=== PATIENT | male | born 1960 | race Caucasian/White ===

== ENCOUNTER → 2016-12-17 | Outpatient (CLI) | payer OTHER ==
[2015-10-15 11:02] VITALS: BP 106/63
[~2016-12-17] MED LIST: ASPI-482 PO; LIPITOR80 MG PO; LISI2.5T PO; OMEG1CAP27 PO; OMEP10SU PO; TICA90TA PO
--- NOTE | 2016-12-17 12:42 | RAD ---
APPROVED REPORT Test Type: Exercise Stress Nurse/Tech: oumou ontiveros Test Indications: CAD Cardiac History: CAD,HIGH CHOLESTEROL, CARDIAC STENTS, SEE EHR Medications: SEE EHR Medical History: NONE STATED Resting ECG: SINUS BRADYCARDIA Resting Heart Rate: 48 bpm Resting Blood Pressure: 118/83mmHg Pretest Chest Pain: No chest pain Nurse/Tech Notes LUNG SOUND CLEAR, S1S2 WNL. Consent: The procedure was explained to the patient in lay terms. Informed consent was witnessed. Addison eout was entered into [employer]. History and Stress Test performed by RT Rancho (R) (N) Stress Symptoms NONE STATED, PT WAS ABLE TO BREIFLY CONVERSE, MILD LEG DISCOMFORT, PT AT A FAST WALK ALMOST A RUN. POST EXERCISE Reason for Termination: Reached target heart rate Target HR: Yes Max HR: 156 bpm 112% of Maximum Predicted HR: 139 bpm Exercise duration: 10:44 min:sec, 4 Stage Exercise capacity: 13.4METs Max Blood Pressure: 138/78mmHg Blood Pressure response to exercise: Normal blood pressure response during stress. Heart Rate response to exercise: WNL Chest Pain: No. Arrhythmia: No. ST Change: No. INTERPRETATION Stress EKG Conclusion: Baseline EKG showed sinus rhythm. No ischemic changes at peak stress. No arr hythmias. Imaging Protocol IMAGE PROTOCOL: Rest Tc-99m/stress Tc-99m 1 day Rest: Stress: Viability: Radiopharm.Tc99m [id number] Sestamibi Dose9.5mCi 34.1mCi Duration 15min. 10min. Img Date 12/17/2016 12/17/2016 Inj-Img [id number]. 60min. Rest Admin Site:IV - Left AntecubitalAdministrator:RT Rancho (R)(N) Stress Admin Site: IV - Left AntecubitalAdministrator: RT Rancho (R)(N) STRESS DATA End Diast. Vol.114.0mlAv. Heart Rate62.0bpm End Syst. Vol.38.0mlCO Index BSA0.0L/min Myocardial Fqef928.0gEject. Ferdxguj05.0% Stress Rates Pk. Fill Rate2.55EDV/secLVtime Pk. Fill 184.10msec Pk. Empty Rate3.60ESV/secLVtime Pk. Rhpcr676.76msec 1/3 Pk. Fill1.23EDV/sec Stress Scores Regional WT0.00Summed WT0.00 Regional WM0.00Summed WM0.00 LV Perfusion Scintigraphic images showed small to moderate predominantly fixed defect involving the inferior wall consistent with previous myocardial infarction with very small amount of reversibility consistent wit h mesfin-infarct ischemia. Wall Motion Basal inferior wall hypokinesis with ejection fraction calculated at 67%. LV Perf. Quant 17 Seg. SSS5.00 17 Seg. SRS1.00 17 Seg. SDS4.00 Stress Defect Extent (% LAD)0.00Rest Defect Extent (% LAD)0.00Rev. Defect Extent (% LAD)0.00 Stress Defect Extent (% LCX) 23.80Rest Defect Extent (% LCX)8.80Rev. Defect Extent (% LCX)22.50 Stress Defect Extent (% RCA)0.00Rest Defect Extent (% RCA)4.40Rev. Defect Extent (% RCA)0.00 Stress Defect Extent (% ROX)4.60Rest Defect Extent (% ROX)2.40Rev. Defect Extent (% ROX)4.30 Conclusion 1. Treadmill exercise cardioisotope stress test showed dlssx-jl-tejcefxs inferior wall infarct with v mirna small amount of mesfin-infarct ischemia. 2. Basal inferior wall hypokinesis with ejection fraction calculated at 67%. 3. Patient had good activity tolerance. Low risk for cardiac events.
== END | disposition home or self-care (01) ==
LOC: NM 08:35
PROVIDERS: ATTEND Internal Medicine Cardiovascular Disease
DX: I25.10 Atherosclerotic heart disease of native coronary artery without angina pectoris (principal); I21.4 Non-ST elevation (NSTEMI) myocardial infarction
CPT/HCPCS: 78452; 93017; 96374; 96376; A9500

== ENCOUNTER → 2018-12-15 | Outpatient (CLI) | payer OTHER ==
[2015-10-15 11:02] VITALS: BP 106/63
[~2018-12-15] MED LIST changes: -OMEP10SU PO; +OMEP10SU2 PO
[2018-12-15 10:00] LABS: ALBUMIN 3.6 g/dL (3.4-5.0); CALCIUM 9.5 mg/dL (8.5-10.1); CREATININE 1.3 mg/dL (0.7-1.3); DIRECT BILIRUBIN 0.1 mg/dL (0.0-0.2); GFR 56.7; POTASSIUM 4.4 mmol/L (3.5-5.1); TOTAL BILIRUBIN 0.6 mg/dL (0.2-1.0); TOTAL PROTEIN 7.1 g/dL (6.4-8.2)
[2018-12-15 10:05] LABS: CHOLESTEROL/HDL RATIO 7.2
--- NOTE | 2018-12-15 12:36 | RAD ---
MR#: [id number] Date of Study: 12/15/2018 Ordering Physician: JOSETTE JACKSON, Referring Physician: EMELIA MERCHANT Tech: CAT Benson, ARRT (R) (N) APPROVED REPORT Test Type: Exercise Stress Nurse/Tech: Yari LORA Test Indications: CP, Stemi in 2016 Cardiac History: [place] in 2016 w/ 2 stents, family hx, Father passed at age 51 from [place] Medications: Lipitor, Omeprazole, ASA, and Fish oil Medical History: See EMR Resting ECG: SB Resting Heart Rate: 49 bpm Resting Blood Pressure: 120/79mmHg Pretest Chest Pain: No chest pain Nurse/Tech Notes Lungs CTA, Heart tones regular. Consent: The procedure was explained to the patient in lay terms. Informed consent was witnessed. Addison eout was entered into [employer]. History and Stress Test performed by RT Rancho (R) (N) Stress Symptoms No chest pain or symptoms. POST EXERCISE Reason for Termination: Reached target heart rate Target HR: Yes Max HR: 144 bpm 89% of Maximum Predicted HR: 162 bpm Exercise duration: 9:30 min:sec, 4 Stage Exercise capacity: 10.0METs Max Blood Pressure: 161/72mmHg Blood Pressure response to exercise: Normal blood pressure response during stress. Heart Rate response to exercise: WNL Chest Pain: No. Arrhythmia: No. ST Change: No. INTERPRETATION Stress EKG Conclusion: The resting EKG shows a sinus rhythm, non specific ST T wave changes and an in ferior Q wave. The stress EKG shows no significant changes from baseline. No EKG evidence of stress induced ischemia. Imaging Protocol IMAGE PROTOCOL: Rest Tc-99m/stress Tc-99m 1 day Rest: Stress: Viability: Radiopharm.Tc99m HwfyxszhvPp78e Sestamibi Dose10.6mCi 35mCi Img Date 12/15/2018 12/15/2018 Inj-Img [id number]. 60min. Rest Admin Site:IV - Right AntecubitalAdministrator:RT Rancho (R)(N) Stress Admin Site: IV - Right AntecubitalAdministrator: Anne-Marie Garg, RT (R)(N) STRESS DATA End Diast. Vol.125.0mlAv. Heart Rate58.0bpm End Syst. Vol.28.0mlCO Index BSA5.6L/min Myocardial Hmwq604.0gEject. Afdosjlt42.0% Stress Rates Pk. Fill Rate2.89EDV/secLVtime Pk. Fill 264.43msec Pk. Empty Rate3.59ESV/secLVtime Pk. Qwoed318.11msec 04/06 Pk. Fill0.68EDV/sec Stress Scores Regional WT0.00Summed WT0.00 Regional WM0.00Summed WM0.00 LV Perfusion Thje stress scans show no significant defects. The rest scans show no significant defects. Nuclear imaging shows no reversible ischemia or infarct. Wall Motion LV systolic function is normal with no wall motion abnormalities and an ejection fraction of > 70%. LV Perf. Quant 17 Seg. SSS2.00 17 Seg. SRS1.00 17 Seg. SDS1.00 Stress Defect Extent (% LAD)0.00Rest Defect Extent (% LAD)0.00Rev. Defect Extent (% LAD)0.00 Stress Defect Extent (% LCX) 17.50Rest Defect Extent (% LCX)0.00Rev. Defect Extent (% LCX)0.00 Stress Defect Extent (% RCA)0.00Rest Defect Extent (% RCA)4.40Rev. Defect Extent (% RCA)0.00 Stress Defect Extent (% ROX)3.00Rest Defect Extent (% ROX)0.90Rev. Defect Extent (% ROX)0.00 Conclusion 1. Good exercise tolerance. 2. No EKG evidence of stress induced ischemia. 3. Nuclear imaging shows no reversible ischemia or infarct. 4. Normal left ventricular systolic function with an ejection fraction of greater than 70%. 5. Low risk treadmill nuclear stress test. Signed by : Josette Jackson MD Electronically Approved : 12/15/2018 12:36:09
== END | disposition home or self-care (01) ==
LOC: NM 08:00
PROVIDERS: ATTEND Internal Medicine Cardiovascular Disease
DX: I21.3 ST elevation (STEMI) myocardial infarction of unspecified site (principal)
CPT/HCPCS: 36415; 78452; 80048; 80061; 80076; 93017; A9500